=== PATIENT | male | born 1935 | race Caucasian/White ===

== ENCOUNTER 2019-01-06 08:48 | Emergency (ER) | payer MEDICARE ==
[~2019-01-06] VITALS: Ht 180.3 cm; Wt 108.6 kg
--- NOTE | 2019-01-06 09:59 | Diagnostic Imaging Report ---
PROCEDURE: CT head without contrast. TECHNIQUE: Multiple contiguous axial images were obtained through the brain without the use of intravenous contrast. Auto Exposure Controls were utilized during the CT exam to meet ALARA standards for radiation dose reduction. INDICATION: Headache. COMPARISON: None. FINDINGS: BRAIN: No parenchymal hemorrhage, midline shift or mass effect. Hogan-white matter differentiation is intact. No acute infarct. No significant white matter lesions. Mild prominence of the ventricles and sulci consistent with cortical and cerebellar parenchymal volume loss, commensurate with age. EXTRA-AXIAL SPACES: No subdural or epidural collections. ORBITS AND PARANASAL SINUSES: Visualized orbits and globes are intact. Visualized paranasal sinuses and mastoid air cells are clear. CALVARIUM AND SOFT TISSUES: The calvarium is intact. No fractures or suspicious bony lesions. The extracranial soft tissues are unremarkable. IMPRESSION: No acute intracranial pathology. Dictated by: Dictated on workstation # [id number]
--- NOTE | 2019-01-06 10:00 | ED Headache ---
General Chief Complaint: Head/Cervical Problems Stated Complaint: HEADACHE Nursing Triage Note: Patient c/o of tenderness in the occiput region. States that he has had a infected tooth and feels that infection might be spreading. Reports that he was recently on clindamycin for the infection in his tooth but completed it about 3 weeks ago. The pain in the back of his head started yesterday and has increased today. Nursing Sepsis Screen: No Definite Risk History of Present Illness Date Seen by Provider: Jan 06, 2019 Time Seen by Provider: 09:20 Initial Comments The patient is a pleasant 83-year-old male presents for evaluation of occipital scalp tenderness which started yesterday. He states that about 3 weeks ago he saw a dentist for a dental infection and was placed on clindamycin. The pain in the back of the scalp was first noticed yesterday. He denies any trauma to the area. He states that his posterior scalp was actually tender to palpation and denies having a traditional headache. He is no longer taking his clindamycin as he completed what he was prescribed. He is alert and oriented 4, calm, and appears to be in no distress at this time. He denies vision change, focal weakness or numbness, chest pain or shortness of breath, abdominal or back pain, nausea or vomiting, fevers or chills. He reports he continues to have mild right lower dental discomfort but has not noticed any swelling or drainage. Timing/Duration: 24 hours Severity/Quality: moderate Location: occipital Prior Headaches/Recent Trauma: no recent headache/trauma Associated Symptoms: denies symptoms Allergies and Home Medications Allergies Coded Allergies: Antihistamines - Alkylamine (Verified Allergy, Unknown, 01/06/19) All antihistamines Penicillins (Verified Allergy, Unknown, 01/06/19) cephalexin (Verified Allergy, Unknown, 01/06/19) Patient Home Medication List Home Medication List Reviewed: Yes Review of Systems Review of Systems Constitutional: no symptoms reported Eyes: No Symptoms Reported Ears, Nose, Mouth, Throat: no symptoms reported, mouth pain (mild dental pain) Respiratory: no symptoms reported Cardiovascular: no symptoms reported Gastrointestinal: no symptoms reported Genitourinary: no symptoms reported Musculoskeletal: no symptoms reported Skin: no symptoms reported Psychiatric/Neurological: Headache All Other Systems Reviewed Negative Unless Noted: Yes Past Lzjiwud-Comtxm-Mbzefz Hx Past Med/Social Hx: Reviewed Nursing Past Med/Soc Hx Patient Social History Recent Foreign Travel: No Contact w/Someone Who Travel: No Recent Infectious Disease Expo: No Physical Abuse: No Sexual Abuse: No Mistreated: No Fear: No Physical Exam Vital Signs Vital Signs - First Documented 01/06/19 09:10 Temp 37.6 Pulse 66 Resp 18 B/P (MAP) 118/39 (65) Pulse Ox 66 O2 Delivery Room Air Capillary Refill : Less Than 3 Seconds Height, Weight, BMI Height: '" Weight: lbs. oz. kg; 33.00 BMI Method: General Appearance: WD/WN, no apparent distress HEENT: PERRL/EOMI, normal ENT inspection, pharynx normal, other (no oral swelling or focal tenderness noted, no facial swelling, +ttp over occpital scalp without rash/ecchymosis/swelling) Neck: non-tender, full range of motion, supple Cardiovascular: regular rate, rhythm, no edema, no JVD Respiratory: chest non-tender, lungs clear, normal breath sounds, no respiratory distress Gastrointestinal: normal bowel sounds, non tender, soft Extremities: normal range of motion, normal inspection, no pedal edema Psychiatric: alert, oriented x 3 Crainal Nerves: normal hearing, normal speech, PERRL Skin: normal color, warm/dry Progress/Results/Core Measures Results/Orders My Orders Orders - KENIA MALLOY DO Ct Head Wo (01/06/19 09:28) Vital Signs/I&O 01/06/19 09:10 Temp 37.6 Pulse 66 Resp 18 B/P (MAP) 118/39 (65) Pulse Ox 66 O2 Delivery Room Air Blood Pressure Mean: 65 Progress Progress Note : Progress Note @1003 - Patient updated on imaging results which are unremarkable. He has no additional complaints, states he is feeling better, and will go home with a pre scription for clindamycin. This patient to follow up with his dentist within the next 1-2 days. Advised the patient to return to the emergency department immediately for new or worsening symptoms. Departure Impression Primary Impression: Scalp tenderness Additional Impression: Pain, dental Disposition: 01 HOME, SELF-CARE Condition: Stable Departure-Patient Inst. Decision time for Depature: 10:08 Referrals: SELF,ELSY VEGA (PCP/Family) Primary Care Physician Patient Instructions: Headache, Adult (DC), Dental Pain (DC) Add. Discharge Instructions: As discussed, follow-up with your dentist in the next 1-2 days. Take the prescribed medication as directed. At home take Tylenol or ibuprofen for the pain as needed. Return to the emergency Department immediately for new or worsening symptoms. Scripts Clindamycin HCl (Clindamycin HCl) 300 Mg Capsule 300 MG PO QID for 7 Days, #28 CAP Prov: KENIA MALLOY DO 01/06/19 KENIA MALLOY DO Jan 06, 2019 09:59
[2019-01-06] MEDS ORDERED: CLIN300C11 PO (10:12)
[2019-01-06 10:25] VITALS: BP 118/39
== END 2019-01-06 10:25 | disposition home or self-care (01) ==
LOC: ER FS 08:51 → EDBD 08:51 → ER FS 10:25
DX: R51 Headache (principal); K08.89 Other specified disorders of teeth and supporting structures; Z88.8 Allergy status to other drugs, medicaments and biological substances; Z88.0 Allergy status to penicillin; Z88.1 Allergy status to other antibiotic agents
CPT/HCPCS: 70450